=== PATIENT | female | born 1980 | race Caucasian/White ===

== ENCOUNTER 2016-10-28 08:03 | Day surgery (SDC) | payer BC ==
[~2016-10-28 08:03] MED LIST: Lactated Ringers 1,000 ML IV SCH
--- NOTE | 2016-10-28 08:23 | PCM.PREANE ---
Preanesthetic Assessment - Anesthesia/Transfusion/Family Hx Anesthesia History: Prior Anesthesia Without Reaction Family History of Anesthesia Reaction: No Transfusion History: No Prior Transfusion(s) Intubation History: Unknown - Review of Systems General: No Symptoms Pulmonary: No Symptoms Cardiovascular: No Symptoms Gastrointestinal: Abdominal pain Neurological: No Symptoms Other: Reports: None - Physical Assessment Height: 1.69 m Weight: 65.317 kg ASA Class: 2 Mental Status: Alert & Oriented x3 Airway Class: Mallampati = 2 Dentition: Reports: Normal Dentition Thyro-Mental Finger Breadths: 3 Mouth Opening Finger Breadths: 2 ROM/Head Extension: Full Lungs: Clear to auscultation, Normal respiratory effort Cardiovascular: Regular Rate, Regular Rhythm - Allergies Allergies/Adverse Reactions: Allergies Allergy/AdvReac Type Severity Reaction Status Date / Time No Known Allergies Allergy Verified 10/24/16 16:10 - Blood Blood Available: No - Anesthesia Plan Pre-Op Medication Ordered: None - Acknowledgements Anesthesia Type Planned: MAC Pt an Appropriate Candidate for the Planned Anesthesia: Yes Alternatives and Risks of Anesthesia Discussed w Pt/Guardian: Yes Pt/Guardian Understands and Agrees with Anesthesia Plan: Yes PreAnesthesia Questionnaire HEENT History: Reports: None Cardiovascular History: Reports: None Respiratory History: Reports: None Gastrointestinal History: Reports: GERD Genitourinary History: Reports: None [employer]OR[employer] RE[employer]ER History: Reports: Musculoskeletal History: Reports: None Neurological History: Reports: None Psychiatric History: Reports: Depression Endocrine/Metabolic History: Reports: None Hematologic History: Reports: None Immunologic History: Reports: None Oncologic (Cancer) History: Reports: None Dermatologic History: Reports: None - Past Surgical History Head Surgeries/Procedures: Reports: None HEENT Surgical History: Reports: None Cardiovascular Surgical History: Reports: None Respiratory Surgical History: Reports: None GI Surgical History: Reports: Appendectomy Female Surgical History: Reports: Breast implant Endocrine Surgical History: Reports: None Neurological Surgical History: Reports: None Musculoskeletal Surgical History: Reports: None Oncologic Surgical History: Reports: None - SUBSTANCE USE Smoking Status *Q: Never Smoker Recreational Drug Use History: No - HOME MEDS Home Medications: Home Meds Cefdinir 300 mg PO BID 10/24/16 [History] Pantoprazole Sodium [Protonix] 20 mg PO DAILY 10/24/16 [History] Sucralfate 1 gm PO QID 10/24/16 [History] Venlafaxine [Venlafaxine HCl ER] 150 mg PO DAILY 10/24/16 [History] - CURRENT (IN HOUSE) MEDS Current Meds: Current Medications Lactated Ringer's (Ringers, Lactated) 1,000 mls @ 125 mls/hr IV ASDIRECTED YELITZA
[2016-10-28] MEDS ORDERED: Propofol 200 MG/20 ML SDV ONE (08:24)
[2016-10-28] MEDS ORDERED: Lidocaine 2% 5 ML SDV ONE (08:24)
[2016-10-28] MEDS ORDERED: Midazolam 1 MG/ML 2 ML SDV ONE (08:25)
--- NOTE | 2016-10-28 08:49 | PCM.OPNOTE ---
- General Post-Op/Procedure Note Date of Surgery/Procedure: 10/28/16 Operative Procedure(s): egd w bx Findings: see dict [id number] Anesthesia Technique: Moderate sedation Primary Surgeon: Itz Toussaint Pathology: sent Complications: None Condition: Good
--- NOTE | 2016-10-28 09:24 | PCM.POSTAN ---
POST ANESTHESIA ASSESSMENT - MENTAL STATUS Mental Status: alert, oriented - RESPIRATORY Respiratory Status: respiratory rate WNL, airway patent, O2 saturation stable - CARDIOVASCULAR CV Status: pulse rate WNL, blood pressure stable - GASTROINTESTINAL GI Status: no symptoms - POST OP HYDRATION Hydration Status: adequate & stable - OBSERVATIONS Free Text/Narrative:: no anesthesia problems
[2016-10-28 10:09] VITALS: BP 93/59
--- NOTE | 2016-10-28 16:50 | OR ---
SURGEON: Itz Toussaint MD DATE OF PROCEDURE: 10/28/2016 PREOPERATIVE DIAGNOSIS: Abdominal pain. POSTOPERATIVE DIAGNOSIS: Acid reflux. PROCEDURE PERFORMED: Esophagogastroduodenoscopy with biopsy. FINDINGS: 1. The patient is easily sedated with DESKTOP OPERATOR and Diprivan. The patient is soundly snoring. 2. Oropharynx and proximal esophagus normal in appearance and proximal esophagus is free of disease. No stricture, ulceration, bleeding, inflammation. Distal esophagus at GE junction at 40, shows some little bit of salmon color change consistent with mild acid reflux, and stomach rugae is normal in appearance. There is no food, blood ulcer, or bile observed. Duodenum was grossly normal in appearance. Antrum was a little bit inflamed, very mild and retroflexed to look at the fundus of stomach and the patient has mild hiatal hernia. Biopsy was done at antrum, body, GE junction at 40 and sucked out the air while scope pulling out. DESCRIPTION OF PROCEDURE: EGD: The patient was taken to the endoscopy room, and with the DESKTOP OPERATOR, Diprivan was administered. A well-lubricated EGD scope was gently inserted through the oropharynx, down the esophagus, passing through the gastroesophageal junction, into the stomach. The mucosa was examined upon the passage. Any etiology will be noted. Once in the stomach, we continued to advance to the distal antrum, passed through the pylorus into the second portion of the duodenum. Again, the mucosa was examined for any abnormality and etiology. The scope was then retrieved back to the stomach and then retroflexed to look at the fundus of the stomach. If a biopsy was indicated, we will biopsy the antrum, body, and gastroesophageal junction. The air will be sucked out while the scope is retrieved to reduce the patient's discomfort. The patient tolerated the procedure well. There were no intraoperative complications. Dr. Toussaint was present through the whole procedure. Prior to surgery, a time-out had been called, the patient identified, procedure identified and antibiotic administered. HARDIK / MARAH /[id number]
--- NOTE | 2016-10-29 13:38 | US ---
EXAMINATION: Right upper quadrant ultrasound HISTORY: Pain COMPARISON: 05/23/2007 TECHNIQUE: Grayscale and color Doppler images obtained of the right upper quadrant. FINDINGS: The visualized pancreas appears similar in echogenicity relative to the liver. The gallbla dder wall thickness is normal. No pericholecystic fluid or shadowing gallstones. The liver appears n ormal in contour and echogenicity without a focal hepatic mass. Common bile duct measures 2 mm. The right kidney measures 10.3 cm [id number] without evidence hydronephrosis. There is a 1.6 cm cyst w ithin the upper pole of the right kidney. No abdominal ascites. IMPRESSION: 1. The pancreas appears hypoechoic, correlate with pancreatic enzymes. 2. Otherwise grossly unremarkable right upper quadrant.
== END 2016-10-28 10:05 | disposition home or self-care (01) ==
LOC: MW.SDS 08:03
PROVIDERS: ATTEND Surgery
DX: K21.0 Gastro-esophageal reflux disease with esophagitis (principal); K44.9 Diaphragmatic hernia without obstruction or gangrene; K86.89 Other specified diseases of pancreas; Z98.890 Other specified postprocedural states; Z79.899 Other long term (current) drug therapy
CPT/HCPCS: 43239; 76705; 81025; 88305; 88312; J2250; J7120; 00740; J2704

== ENCOUNTER → 2016-10-28 | Outpatient (CLI) | payer BC | LOC: MW.US 07:41 | PROVIDERS: ATTEND Surgery | DX: R10.9 Unspecified abdominal pain (principal); K86.89 Other specified diseases of pancreas | CPT/HCPCS: 76705; 76705-26 ==